=== PATIENT | male | born 1960 | race Hispanic/Latino ===

== ENCOUNTER → 2019-06-05 | Outpatient (CLI) | payer OTHER | END | disposition home or self-care (01) | LOC: RAH 12:48 | PROVIDERS: ATTEND Internal Medicine Interventional Cardiology | DX: Z13.6 Encounter for screening for cardiovascular disorders (principal) | CPT/HCPCS: 75571 ==

== ENCOUNTER 2021-06-04 04:39 | Observation (INO) | payer BC, OTHER ==
[~2021-06-04] VITALS: Ht 185.4 cm; Wt 162.4 kg
[2021-06-04] VITALS (10 sets, daily range): BP systolic 129–186; BP diastolic 76–115
[2021-06-04] MEDS ORDERED: NITROGLYCERIN 0.4 MG SL TAB SL PRN ×2 (05:00→07:30)
[2021-06-04 05:49] LABS: BASOPHILS % (AUTO) 0.3 % (0.0-5.0); EOSINOPHILS % (AUTO) 3.6 % (0.0-8.0); HEMATOCRIT 41.6 % (42-54); LYMPHOCYTES % (AUTO) 35.7 % (21.0-51.0); MEAN CORPUSCULAR HEMOGLOBIN 28.9 pg (27.0-33.0); MEAN CORPUSCULAR HGB CONC 33.9 g/dL (32.0-36.0); MEAN CORPUSCULAR VOLUME 85.2 fL (79-99); MONOCYTES % (AUTO) 8.8 % (3.0-13.0); NEUTROPHILS % (AUTO) 51.3 % (40.0-77.0); PLATELET COUNT (AUTO) 239 K/uL (130-400); RED BLOOD CELL COUNT(AUTO) 4.88 MIL/uL (4.50-6.20); RED CELL DISTRIBUTION WIDTH 13.1 % (11.0-15.5); WHITE BLOOD COUNT (AUTO) 6.7 K/uL (4.8-10.8)
[2021-06-04 06:04] LABS: CREATININE 0.8 mg/dL (0.5-1.5); POTASSIUM 3.9 mmol/L (3.5-5.1)
[2021-06-04 06:09] LABS: ALBUMIN 3.6 g/dL (3.5-5.0); BILIRUBIN,TOTAL 0.4 mg/dL (0.2-1.0); INR 0.91 (0.85-1.15); TOTAL PROTEIN, SERUM 7.2 g/dL (6.0-8.3)
[2021-06-04 06:10] LABS: PARTIAL THROMBOPLASTIN TIME 24.3 SEC (26.3-35.5)
[2021-06-04 06:22] LABS: APPEARANCE,URINE Clear (CLEAR); BILIRUBIN,URINE Negative (NEGATIVE); COLOR,URINE Yellow (YELLOW); GLUCOSE, URINE (UA) Negative (NEGATIVE); KETONES,URINE Negative (NEGATIVE); LEUKOCYTE ESTERASE ,URINE Negative (NEGATIVE); NITRATE,URINE Negative (NEGATIVE); OCCULT BLOOD,URINE Negative (NEGATIVE); PH,URINE 7.5 (5.0-8.0); PROTEIN,URINE Negative (NEGATIVE); UROBILINOGEN,URINE 0.2 mg/dL (0.2-1.0)
[2021-06-04] MEDS ORDERED: ACETAMINOPHEN 325 MG TAB PO PRN ×2 (07:30)
[2021-06-04] MEDS ORDERED: LACTULOSE 20 GM/30 ML UDCUP PO PRN (07:30)
[2021-06-04] MEDS ORDERED: ONDANSETRON 4MG INJ IV PRN (07:30)
[2021-06-04] MEDS ORDERED: CARV12.511 PO (07:42)
[2021-06-04] MEDS ORDERED: MONT10TA32 PO (07:42)
[2021-06-04] MEDS ORDERED: POTA-9 PO (07:42)
[2021-06-04] MEDS ORDERED: METF-445 PO (07:42)
[2021-06-04] MEDS ORDERED: QUIN40TA19 PO (07:43)
[2021-06-04] MEDS ORDERED: AMLO-257 PO (07:43)
[2021-06-04] MEDS ORDERED: PANT40TA54 PO (07:43)
[2021-06-04] MEDS ORDERED: PRAV40TA3 PO (07:43)
[2021-06-04] MEDS: INSULIN HUMULIN R 100 UNIT/ML 3ML SQ SCH ×7 (08:24→21:00)
[2021-06-04] MEDS: ASPIRIN 325MG TAB PO SCH (08:25)
[2021-06-04] MEDS: AMLODIPINE 5 MG TAB PO SCH (08:25)
[2021-06-04 08:53] LABS: CHOLESTEROL 187 mg/dL (<200); HDL CHOLESTEROL 37 mg/dL (29-71); LDL DIRECT 100 mg/dL (0-99); TRIGLYCERIDES 268 mg/dL (30-200)
[2021-06-04] MEDS ORDERED: INSULIN GLARGINE 100 UNITS/ML 10 ML VIAL SQ SCH (21:00)
[2021-06-04] MEDS ORDERED: CARVEDILOL 12.5 MG TABLET PO SCH (21:00)
[2021-06-05] VITALS: BP 124/68
[2021-06-05 04:00] VITALS: BP 137/85
[2021-06-05] MEDS: INSULIN HUMULIN R 100 UNIT/ML 3ML SQ SCH ×4 (06:41→12:00)
[2021-06-05 08:14] VITALS: BP 160/97
[2021-06-05] MEDS: AMLODIPINE 5 MG TAB PO SCH (08:20)
[2021-06-05] MEDS: ASPIRIN 325MG TAB PO SCH (08:20)
[2021-06-05 11:21] VITALS: BP 141/95
[2021-06-05] MEDS ORDERED: Nitroglycerin 0.4MG Sl Tab SL (12:01)
[2021-06-05] MEDS ORDERED: AMLO5TAB4 PO (12:01)
[2021-06-05] MEDS ORDERED: ASPI-1026 PO (12:03)
[2021-06-05 12:24] LABS: HEMOGLOBIN A1C 7.6 % (4.0-6.0)
[2021-06-05] MEDS ORDERED: ATORVASTATIN 40 MG TABLET PO SCH (21:00)
== END 2021-06-05 13:26 | disposition home or self-care (01) ==
LOC: EDH 04:39 → EDHIP 07:13 → 4BH 20:21
PROVIDERS: ADMIT Internal Medicine; ATTEND Internal Medicine
DX: R07.89 Other chest pain (principal); Z20.822 Contact with and (suspected) exposure to COVID-19; I10 Essential (primary) hypertension; E66.01 Morbid (severe) obesity due to excess calories; E11.9 Type 2 diabetes mellitus without complications; E78.5 Hyperlipidemia, unspecified; M79.7 Fibromyalgia; M19.90 Unspecified osteoarthritis, unspecified site; Z79.82 Long term (current) use of aspirin; Z79.84 Long term (current) use of oral hypoglycemic drugs; Z68.42 Body mass index [BMI] 45.0-49.9, adult
CPT/HCPCS: 36415; 71045; 80053; 80061; 81003; 82550 ×4; 82948 ×5; 83036; 83874 ×3; 84484 ×4; 85025; 85610; 85730; 87635; 93005 ×4; 96372 ×2; 99285; G0378 ×30; J1815 ×4

== ENCOUNTER 2022-06-17 20:10 | Inpatient (IN) | payer BC ==
[~2022-06-17] VITALS: Ht 185.4 cm; Wt 152.0 kg
[~2022-06-17 20:10] MED LIST: AEC81 PO; APIX5TAB PO; CARV25TA PO; DILT180C63 PO; ESCI10TA PO; KCL10IV PO; METF-445 PO; MONT-39 PO; PANT40TA54 PO; SEMA1PEN3 SQ
[2022-06-17 20:32] LABS: BASOPHILS % (AUTO) 0.3 % (0.0-5.0); EOSINOPHILS % (AUTO) 1.6 % (0.0-8.0); HEMATOCRIT 42.6 % (42-54); MEAN CORPUSCULAR HEMOGLOBIN 28.3 pg (27.0-33.0); MEAN CORPUSCULAR HGB CONC 33.8 g/dL (32.0-36.0); MEAN CORPUSCULAR VOLUME 83.9 fL (79-99); MONOCYTES % (AUTO) 7.6 % (3.0-13.0); NEUTROPHILS % (AUTO) 58.1 % (40.0-77.0); PLATELET COUNT (AUTO) 241 K/uL (130-400); RED BLOOD CELL COUNT(AUTO) 5.08 MIL/uL (4.50-6.20); RED CELL DISTRIBUTION WIDTH 13.7 % (11.0-15.5); WHITE BLOOD COUNT (AUTO) 9.1 K/uL (4.8-10.8)
[2022-06-17] MEDS ORDERED: AMIODARONE 150MG VIAL IV STA (20:45)
[2022-06-17] MEDS ORDERED: AMIODARONE 150MG VIAL ONE (20:48)
[2022-06-17 20:55] LABS: ALBUMIN 3.6 g/dL (3.5-5.0); POTASSIUM 3.8 mmol/L (3.5-5.1); TOTAL PROTEIN, SERUM 7.8 g/dL (6.0-8.3)
[2022-06-17 21:07] LABS: B-TYPE NATRIURETIC PEPTIDE 48 pg/mL (0-100)
[2022-06-17] MEDS ORDERED: POTASSIUM CHLORIDE 20MEQ/100ML 100 ML IV PRN (22:30)
[2022-06-17] MEDS ORDERED: POTASSIUM CHLORIDE 10% ELIXIR 20 MEQ/15 ML UDCUP PO PRN (22:30)
[2022-06-17] MEDS ORDERED: ACETAMINOPHEN 325 MG TAB PO PRN (22:30)
[2022-06-17] MEDS ORDERED: MORPHINE 2 MG SYG IV PRN (22:30)
[2022-06-17] MEDS ORDERED: KCL 20 MEQ ERTAB PO PRN (22:30)
[2022-06-17] MEDS ORDERED: LIDOCAINE HCL-MPF 1% 2ML VIAL IV PRN (22:30)
[2022-06-17] MEDS ORDERED: MORPHINE 4 MG SYG IV PRN (22:30)
[2022-06-17] MEDS ORDERED: ASPIRIN 81MG CHEW TAB PO ONE (22:30)
[2022-06-17] MEDS ORDERED: AMIODARONE 900MG VIAL 360 MG in DEXTROSE 5%-WATER 200 ML IV SCH (22:30)
[2022-06-17] MEDS ORDERED: ONDANSETRON 4MG INJ IV PRN (22:30)
[2022-06-17] MEDS ORDERED: MAGNESIUM 2GM PREMIX 50ML 50 ML IV PRN (22:30)
[2022-06-17] MEDS: NITROGLYCERIN 1GM OINT 1 INCH/1GM TD SCH (22:49)
[2022-06-18] MEDS: NITROGLYCERIN 1GM OINT 1 INCH/1GM TD SCH ×3 (06:20→22:16)
[2022-06-18 07:22] LABS: INR 0.93 (0.85-1.15); PROTHROMBIN TIME 9.9 SEC (9.6-11.6)
[2022-06-18 07:23] LABS: PARTIAL THROMBOPLASTIN TIME 25.6 SEC (26.3-35.5)
[2022-06-18] MEDS: INSULIN HUMULIN R 100 UNIT/ML 3ML SQ SCH ×4 (07:30→21:00)
[2022-06-18 07:41] LABS: CREATININE 0.9 mg/dL (0.5-1.5); POTASSIUM 3.9 mmol/L (3.5-5.1); THYROID STIMULATING HORMONE 2.51 uIU/mL (0.36-3.74)
[2022-06-18 07:46] LABS: BASOPHILS % (AUTO) 0.4 % (0.0-5.0); EOSINOPHILS % (AUTO) 1.9 % (0.0-8.0); LYMPHOCYTES % (AUTO) 29.7 % (21.0-51.0); MEAN CORPUSCULAR HEMOGLOBIN 28.2 pg (27.0-33.0); MEAN CORPUSCULAR HGB CONC 33.5 g/dL (32.0-36.0); MEAN CORPUSCULAR VOLUME 84.1 fL (79-99); MONOCYTES % (AUTO) 10.1 % (3.0-13.0); NEUTROPHILS % (AUTO) 57.4 % (40.0-77.0); PLATELET COUNT (AUTO) 193 K/uL (130-400); RED CELL DISTRIBUTION WIDTH 13.8 % (11.0-15.5)
[2022-06-18] MEDS: FAMOTIDINE 20MG TAB PO SCH (08:48)
[2022-06-18] MEDS: ASPIRIN 81MG CHEW TAB PO SCH (08:48)
[2022-06-18 08:54] LABS: HEMOGLOBIN A1C 6.5 % (4.0-6.0)
[2022-06-18] MEDS ORDERED: APIXABAN 5 MG TABLET PO SCH (09:00)
[2022-06-18] MEDS ORDERED: ENOXAPARIN SODIUM 40 MG/0.4 ML SYRINGE SQ SCH (09:00)
[2022-06-18] MEDS ORDERED: LISI10TA24 PO (10:44)
[2022-06-18] MEDS ORDERED: HYDR12.54 PO (10:44)
[2022-06-18] MEDS ORDERED: ROSU20TA31 PO (10:44)
[2022-06-18 11:22] LABS: APPEARANCE,URINE CLEAR (CLEAR); BILIRUBIN,URINE NEGATIVE (NEGATIVE); COLOR,URINE YELLOW (YELLOW); GLUCOSE, URINE (UA) NEGATIVE (NEGATIVE); KETONES,URINE NEGATIVE (NEGATIVE); LEUKOCYTE ESTERASE ,URINE NEGATIVE Leu/uL (NEGATIVE); NITRATE,URINE NEGATIVE (NEGATIVE); OCCULT BLOOD,URINE NEGATIVE (NEGATIVE); PH,URINE 6.5 (5.0-8.0); PROTEIN,URINE NEGATIVE (NEGATIVE)
[2022-06-18 11:29] LABS: AMPHET/METH SCREEN,URINE NEGATIVE (NEGATIVE); BARBITURATE SCREEN, URINE NEGATIVE (NEGATIVE); BENZODIAZEPINES SCREEN,URINE NEGATIVE (NEGATIVE); CANNABINOID SCREEN,URINE NEGATIVE (NEGATIVE); COCAINE SCREEN,URINE NEGATIVE (NEGATIVE); PHENCYCLIDINE SCREEN,URINE NEGATIVE (NEGATIVE)
[2022-06-18] MEDS ORDERED: AMIODARONE 900MG VIAL 540 MG in DEXTROSE 5%-WATER 300 ML IV SCH (15:00)
[2022-06-18 15:58] VITALS: BP 153/80
[2022-06-18 20:31] VITALS: BP 129/59
[2022-06-18 23:39] VITALS: BP 129/50
[2022-06-19 04:00] VITALS: BP 120/80
[2022-06-19] MEDS: INSULIN HUMULIN R 100 UNIT/ML 3ML SQ SCH ×3 (05:38→16:30)
[2022-06-19] MEDS: NITROGLYCERIN 1GM OINT 1 INCH/1GM TD SCH ×2 (05:38→14:30)
[2022-06-19] MEDS ORDERED: ACETAMINOPHEN 325 MG TAB PO PRN (08:00)
[2022-06-19 08:09] VITALS: BP 130/67
[2022-06-19] MEDS ORDERED: APIXABAN 5 MG TABLET PO SCH (09:00)
[2022-06-19] MEDS: FAMOTIDINE 20MG TAB PO SCH (09:19)
[2022-06-19] MEDS: ASPIRIN 81MG CHEW TAB PO SCH (09:19)
[2022-06-19] MEDS ORDERED: CITALOPRAM 20 MG TABLET PO SCH ×2 (10:00→21:00)
[2022-06-19 12:00] VITALS: BP 128/56
[2022-06-19] MEDS ORDERED: AMIODARONE 200 MG TABLET PO SCH (13:45)
[2022-06-19 16:00] VITALS: BP 147/93
[2022-06-19] MEDS ORDERED: AMIO200T44 PO (17:02)
== END 2022-06-19 17:55 | disposition home or self-care (01) | DRG 309 ==
LOC: EDH 20:10 → EDHIP 22:22 → 2AH 06-18 15:49
PROVIDERS: ADMIT Internal Medicine; ATTEND Internal Medicine
PROC: 5A09357 Assistance with Respiratory Ventilation, Less than 24 Consecutive Hours, Continuous Positive Airway Pressure (ICD-10-PCS; principal; 2022-06-18)
PROC: 5A09357 Assistance with Respiratory Ventilation, Less than 24 Consecutive Hours, Continuous Positive Airway Pressure (ICD-10-PCS; 2022-06-19)
DX: I47.20 Ventricular tachycardia, unspecified (principal); D68.59 Other primary thrombophilia; I42.8 Other cardiomyopathies; Z68.41 Body mass index [BMI] 40.0-44.9, adult; I48.0 Paroxysmal atrial fibrillation; I25.10 Atherosclerotic heart disease of native coronary artery without angina pectoris; E78.00 Pure hypercholesterolemia, unspecified; E11.65 Type 2 diabetes mellitus with hyperglycemia; E66.01 Morbid (severe) obesity due to excess calories; I10 Essential (primary) hypertension; Z79.01 Long term (current) use of anticoagulants; Z95.810 Presence of automatic (implantable) cardiac defibrillator; Z82.49 Family history of ischemic heart disease and other diseases of the circulatory system; Z83.3 Family history of diabetes mellitus
CPT/HCPCS: 36415; 71045; 80048; 80053; 80305; 81003; 82550; 82948; 83036; 83735; 83874; 83880; 84100; 84443; 84484; 85025; 85610; 85730; 93005; G0378; J0282; J7060

== ENCOUNTER 2022-07-04 18:07 | Emergency (ER) | payer BC ==
[~2022-07-04] VITALS: Ht 188 cm; Wt 151.0 kg
[~2022-07-04 18:07] MED LIST changes: +AMIO200T44 PO; -CARV25TA PO; -DILT180C63 PO; -KCL10IV PO; +LISI10TA24 PO; -METF-445 PO; +ROSU20TA31 PO; -SEMA1PEN3 SQ
[2022-07-04 18:50] LABS: BASOPHILS % (AUTO) 0.5 % (0.0-5.0); EOSINOPHILS % (AUTO) 1.4 % (0.0-8.0); HEMATOCRIT 42.8 % (42-54); LYMPHOCYTES % (AUTO) 37.8 % (21.0-51.0); MEAN CORPUSCULAR HEMOGLOBIN 27.8 pg (27.0-33.0); MEAN CORPUSCULAR HGB CONC 33.2 g/dL (32.0-36.0); MEAN CORPUSCULAR VOLUME 83.9 fL (79-99); MONOCYTES % (AUTO) 8.8 % (3.0-13.0); NEUTROPHILS % (AUTO) 51.1 % (40.0-77.0); PLATELET COUNT (AUTO) 277 K/uL (130-400); RED CELL DISTRIBUTION WIDTH 13.5 % (11.0-15.5); WHITE BLOOD COUNT (AUTO) 8.1 K/uL (4.8-10.8)
[2022-07-04 19:02] LABS: INR 0.93 (0.85-1.15); PROTHROMBIN TIME 9.8 SEC (9.6-11.6)
[2022-07-04 19:03] LABS: PARTIAL THROMBOPLASTIN TIME 25.4 SEC (26.3-35.5)
[2022-07-04 19:13] LABS: B-TYPE NATRIURETIC PEPTIDE 16 pg/mL (0-100)
[2022-07-04 19:19] LABS: ALBUMIN 3.8 g/dL (3.5-5.0); CREATININE 0.9 mg/dL (0.5-1.5); POTASSIUM 3.9 mmol/L (3.5-5.1); TOTAL PROTEIN, SERUM 7.7 g/dL (6.0-8.3)
[2022-07-04] MEDS ORDERED: IOHEXOL 350 MG/ML 100ML INFUS..BTL IV ONE (22:19)
[2022-07-04] MEDS: LORAZEPAM 2 MG/ML 1 ML VIAL IVP SCH ×2 (22:28→22:29)
[2022-07-04] MEDS ORDERED: METF-445 PO (23:01)
[2022-07-04] MEDS ORDERED: AMIO200T68 PO (23:01)
[2022-07-05 00:31] VITALS: BP 156/68
== END 2022-07-05 00:42 | disposition home or self-care (01) ==
LOC: EDH 18:07
DX: I47.20 Ventricular tachycardia, unspecified (principal); I49.3 Ventricular premature depolarization; I11.9 Hypertensive heart disease without heart failure; E78.00 Pure hypercholesterolemia, unspecified; E11.9 Type 2 diabetes mellitus without complications; I25.10 Atherosclerotic heart disease of native coronary artery without angina pectoris; I48.91 Unspecified atrial fibrillation; E66.01 Morbid (severe) obesity due to excess calories; Z68.41 Body mass index [BMI] 40.0-44.9, adult
CPT/HCPCS: 99284; 96374; 71270; 71045; 82550; 84484; 80053; 83880; 85025; 85378; 85610; 85730; 36415; 93005; J2060; Q9967

== ENCOUNTER 2022-10-07 18:56 | Emergency (ER) | payer BC ==
[~2022-10-07] VITALS: Ht 188 cm; Wt 152.0 kg
[~2022-10-07 18:56] MED LIST changes: +AMIO200T68 PO; +METF-445 PO
[2022-10-07 19:28] LABS: BASOPHILS % (AUTO) 0.4 % (0.0-5.0); EOSINOPHILS % (AUTO) 1.2 % (0.0-8.0); LYMPHOCYTES % (AUTO) 39.2 % (21.0-51.0); MEAN CORPUSCULAR HEMOGLOBIN 28.8 pg (27.0-33.0); MEAN CORPUSCULAR HGB CONC 33.9 g/dL (32.0-36.0); MEAN CORPUSCULAR VOLUME 84.9 fL (79-99); MONOCYTES % (AUTO) 8.5 % (3.0-13.0); NEUTROPHILS % (AUTO) 50.6 % (40.0-77.0); PLATELET COUNT (AUTO) 197 K/uL (130-400); RED BLOOD CELL COUNT(AUTO) 5.18 MIL/uL (4.50-6.20); RED CELL DISTRIBUTION WIDTH 14.1 % (11.0-15.5); WHITE BLOOD COUNT (AUTO) 7.8 K/uL (4.8-10.8)
[2022-10-07 19:35] LABS: CREATININE 1.2 mg/dL (0.5-1.5); POTASSIUM 4.2 mmol/L (3.5-5.1)
[2022-10-07 19:45] LABS: ALBUMIN 3.6 g/dL (3.5-5.0)
[2022-10-07 19:52] LABS: B-TYPE NATRIURETIC PEPTIDE 44 pg/mL (0-100)
[2022-10-07] MEDS ORDERED: AMIODARONE 150MG VIAL ONE ×2 (19:55→21:11)
[2022-10-07] MEDS ORDERED: AMIODARONE 900MG VIAL 360 MG in DEXTROSE 5%-WATER 200 ML IV SCH (20:00)
[2022-10-07] MEDS ORDERED: AMIODARONE 900MG VIAL 540 MG in DEXTROSE 5%-WATER 300 ML IV SCH (20:00)
[2022-10-07 20:20] LABS: MAGNESIUM 2.1 mg/dL (1.80-2.40); PHOSPHORUS 4.3 mg/dL (2.5-4.9)
[2022-10-07] MEDS ORDERED: AMIODARONE 150MG VIAL 150 MG in DEXTROSE 5%-WATER 100 ML IV SCH (20:30)
[2022-10-07 21:39] VITALS: BP 152/90
== END 2022-10-07 21:59 | disposition home or self-care (01) ==
LOC: EDH 18:56
DX: I47.20 Ventricular tachycardia, unspecified (principal); E11.9 Type 2 diabetes mellitus without complications; E78.00 Pure hypercholesterolemia, unspecified; I10 Essential (primary) hypertension; E66.01 Morbid (severe) obesity due to excess calories; I25.10 Atherosclerotic heart disease of native coronary artery without angina pectoris; I48.91 Unspecified atrial fibrillation; Z04.9 Encounter for examination and observation for unspecified reason; Z79.01 Long term (current) use of anticoagulants; Z79.82 Long term (current) use of aspirin; Z79.84 Long term (current) use of oral hypoglycemic drugs; Z79.899 Other long term (current) drug therapy; Z95.810 Presence of automatic (implantable) cardiac defibrillator; Z68.41 Body mass index [BMI] 40.0-44.9, adult
CPT/HCPCS: 99284; 96365; 71045; 83735; 84100; 84484; 80053; 83880; 85025; 36415; 93005; J7060; J0282